=== PATIENT | female | born 1935 | race Caucasian/White ===

== ENCOUNTER 2020-06-06 08:00 | Outpatient (CLI) | payer MEDICARE, OTHER | END 2020-06-06 23:59 | disposition home or self-care (01) | LOC: LAB 08:00 | PROVIDERS: ATTEND Internal Medicine | DX: Z11.59 Encounter for screening for other viral diseases (principal); Z20.828 Contact with and (suspected) exposure to other viral communicable diseases ==

== ENCOUNTER 2022-02-19 12:51 | Outpatient (CLI) | payer MEDICARE, OTHER | END 2022-02-19 12:52 | disposition home or self-care (01) | LOC: LAB.R 12:51 | PROVIDERS: ATTEND Internal Medicine | DX: S91.002D Unspecified open wound, left ankle, subsequent encounter (principal) | CPT/HCPCS: 87070; 87077; 87181; 87205 ==

== ENCOUNTER 2022-05-12 03:57 | Outpatient (CLI) | payer MEDICARE | END 2022-05-12 03:58 | disposition critical access hospital (66) | LOC: EMS 03:57 | DX: I95.9 Hypotension, unspecified (principal) | CPT/HCPCS: A0425; A0427 ==

== ENCOUNTER 2022-05-12 04:34 | Observation (INO) | payer MEDICARE, OTHER ==
--- NOTE | 2022-05-12 05:13 | ED Physician Documentation ---
History of Present Illness - Stated complaint Stated Complaint: GLF - Chief complaint Chief Complaint: General - History obtained from History obtained from: Other (HPI from son (in ED at bedside). patient is too confused to reliably contribute to HPI/ROS) - History of Present Illness Timing: Enter time (03:00), Today - Additonal information Additional information: Patient is awake, alert, and pleasant but confused and thus cannot provide contribution to HPI/ROS. Patient's son is in ED at bedside, lives with patient. He says that at approximately 3 AM this morning he found patient on floor of her room, presumably haven fallen with a shelf and items that were on the shelf were next to her. Son says that patient is confused due to dementia. Patient denies any pain Review of Systems Unable to obtain: Confused PD PAST MEDICAL HISTORY - Past Medical History Past Medical History: Yes Cardiovascular: Deep vein thrombosis Neuro: Dementia - Past Surgical History Past Surgical History: Yes - Present Medications Home Medications: Ambulatory Orders Medication Instructions Recorded Confirmed Meloxicam 15 mg PO DAILY 03/17/14 05/12/22 Furosemide [Lasix] 20 mg PO DAILY 05/12/22 05/12/22 - Allergies Allergies/Adverse Reactions: Allergies Allergy/AdvReac Type Severity Reaction Status Date / Time diflunisal [From Dolobid] Allergy Hives Verified 05/12/22 04:40 etodolac [From Lodine] Allergy Hives Verified 05/12/22 04:40 iodine Allergy Anaphylaxis Verified 05/12/22 05:18 lidocaine Allergy Hives Verified 05/12/22 04:40 - Social History Does the pt smoke?: No Smoking Status: Never smoker Does the pt drink ETOH?: Yes Does the pt have substance abuse?: No - Immunizations Immunizations are current?: Yes PD ED PE NORMAL - Vitals Vital signs reviewed: Yes - General General: No acute distress, Well developed/nourished, Other (awake, alert, oriented x 1) - Cardiac Cardiac: RRR - Respiratory Respiratory: No respiratory distress, Clear bilaterally - Abdomen Abdomen: Soft, Non tender - Neuro Neuro: No motor deficit, No sensory deficit Eye Opening: Spontaneous Motor: Obeys Commands Verbal: Confused GCS Score: 14 PD ED PE EXPANDED - Cardiac Cardiac: Murmur Present (2/6 MARS bilateral second ICS) - Extremities Extremities: Other (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 mild edema. no edema RLE) Results - Vitals Vitals: Oxygen O2 Source Room air - Labs Labs: Microbiology 05/12/22 06:55 Urine Culture - Final Urine,Random No growth Laboratory Tests 05/12/22 05/12/22 05/12/22 05:48 05:48 05:48 WBC 10.9 H RBC 3.39 L Hgb 10.4 L Hct 30.4 L MCV 89.7 MCH 30.7 MCHC 34.2 RDW 12.8 Plt Count 159 MPV 9.9 Neut # (Auto) 9.5 H Lymph # (Auto) 0.7 L [place] # (Auto) 0.6 Eos # (Auto) 0.0 Baso # (Auto) 0.0 Absolute Nucleated RBC 0.00 Nucleated RBC % 0.0 Sodium 133 L Potassium 4.0 Chloride 98 L Carbon Dioxide 29 Anion Gap 6.0 BUN 25 H Creatinine 1.5 H Estimated GFR (MDRD) 33 L Glucose 98 Lactic Acid 1.5 Calcium 8.6 Magnesium Total Bilirubin 0.8 AST 22 ALT 18 Alkaline Phosphatase 39 L Troponin I High Sens B-Natriuretic Peptide Total Protein 4.6 L Albumin 3.0 L Globulin 1.6 L Albumin/Globulin Ratio 1.9 Lipase 47 Urine Color Urine Clarity Urine pH Ur Specific [place] Urine Protein Urine Glucose (UA) Urine Ketones Urine Occult Blood Urine Nitrite Urine Bilirubin Urine Urobilinogen Ur Leukocyte Esterase Urine RBC Urine WBC Urine WBC Clumps Ur Squamous Epith Cells Urine Bacteria Ur Microscopic Review Urine Culture Comments 05/12/22 05/12/22 05/12/22 06:55 08:48 08:48 WBC RBC Hgb 11.1 L Hct 32.6 L MCV MCH MCHC RDW Plt Count MPV Neut # (Auto) Lymph # (Auto) [place] # (Auto) Eos # (Auto) Baso # (Auto) Absolute Nucleated RBC Nucleated RBC % Sodium Potassium Chloride Carbon Dioxide Anion Gap BUN Creatinine Estimated GFR (MDRD) Glucose Lactic Acid Calcium Magnesium 2.3 Total Bilirubin AST ALT Alkaline Phosphatase Troponin I High Sens B-Natriuretic Peptide Total Protein Albumin Globulin Albumin/Globulin Ratio Lipase Urine Color YELLOW Urine Clarity CLEAR Urine pH 8.0 H Ur Specific [place] 1.010 Urine Protein NEGATIVE Urine Glucose (UA) NEGATIVE Urine Ketones NEGATIVE Urine Occult Blood SMALL H Urine Nitrite NEGATIVE Urine Bilirubin NEGATIVE Urine Urobilinogen 0.2 (NORMAL) Ur Leukocyte Esterase MODERATE H Urine RBC 0-5 Urine WBC >25 H Urine WBC Clumps PRESENT Ur Squamous Epith Cells FEW Squamous Urine Bacteria Few Ur Microscopic Review INDICATED Urine Culture Comments INDICATED 05/12/22 05/12/22 08:48 08:48 WBC RBC Hgb Hct MCV MCH MCHC RDW Plt Count MPV Neut # (Auto) Lymph # (Auto) [place] # (Auto) Eos # (Auto) Baso # (Auto) Absolute Nucleated RBC Nucleated RBC % Sodium Potassium Chloride Carbon Dioxide Anion Gap BUN Creatinine Estimated GFR (MDRD) Glucose Lactic Acid Calcium Magnesium Total Bilirubin AST ALT Alkaline Phosphatase Troponin I High Sens 521.6 H* B-Natriuretic Peptide 251 H Total Protein Albumin Globulin Albumin/Globulin Ratio Lipase Urine Color Urine Clarity Urine pH Ur Specific [place] Urine Protein Urine Glucose (UA) Urine Ketones Urine Occult Blood Urine Nitrite Urine Bilirubin Urine Urobilinogen Ur Leukocyte Esterase Urine RBC Urine WBC Urine WBC Clumps Ur Squamous Epith Cells Urine Bacteria Ur Microscopic Review Urine Culture Comments - Rads (name of study) CT head Radiology: Prelim report reviewed, See rad report CT cervical spine Radiology: Prelim report reviewed, See rad report chest xray Radiology: Prelim report reviewed, See rad report PD MEDICAL DECISION MAKING - ED course Complexity details: reviewed old records, reviewed results, re-evaluated patient, considered differential, d/w family ED course: presents after being found on floor of her room by her son, presumed that she fell although patient does not recall event. Son says her mental status in ED is not noticeably changed from previous. Blood pressures low-normal early in stay, trend down in mildly hypotensive range but responding to second liter NS IV. Care of patient turned over to oncoming ED physician pending test results. Departure - Departure Disposition: ED Place in Observation Clinical Impression: Syncope, Fall, Dementia, Elevated troponin, Bundle branch block, left Condition: Stable Discharge Date/Time: 05/12/22 12:05
[2022-05-12] MEDS ORDERED: SODIUM CHLORIDE 0.9% 1,000 ML IV STA (05:31)
[2022-05-12 05:54] LABS: BASOPHILS % (AUTO) 0.3 %; EOSINOPHILS % (AUTO) 0.1 %; HCT - HEMATOCRIT 30.4 % (37.0-47.0); HGB - HEMOGLOBIN 10.4 g/dL (12.0-16.0); LYMPHOCYTES # (AUTO) 0.7 10^3/uL (1.5-3.5); LYMPHOCYTES % (AUTO) 6.8 %; MEAN CORPUSCULAR HEMOGLOBIN 30.7 pg (27.0-31.0); MEAN CORPUSCULAR HGB CONC 34.2 g/dL (32.0-36.0); MEAN CORPUSCULAR VOLUME 89.7 fL (81.0-99.0); MEAN PLATELET VOLUME 9.9 fL (7.9-10.8); MONOCYTES # (AUTO) 0.6 10^3/uL (0.0-1.0); MONOCYTES % (AUTO) 5.3 %; NEUTROPHILS # (AUTO) 9.5 10^3/uL (1.5-6.6); PLT - PLATELET COUNT 159 10^3/uL (130-450); RED BLOOD COUNT 3.39 10^6/uL (4.20-5.40); RED CELL DISTRIBUTION WIDTH 12.8 % (12.0-15.0); WHITE BLOOD COUNT 10.9 x10^3/uL (4.8-10.8)
[2022-05-12 06:06] LABS: ALBUMIN/GLOBULIN RATIO 1.9 (1.0-2.2); BILIRUBIN,TOTAL 0.8 mg/dL (0.2-1.0); CALCIUM 8.6 mg/dL (8.5-10.3); CREATININE 1.5 mg/dL (0.4-1.0); TOTAL PROTEIN 4.6 g/dL (6.7-8.2)
[2022-05-12 07:00] LABS: BILIRUBIN,URINE NEGATIVE (NEGATIVE); CLARITY,URINE CLEAR (CLEAR); GLUCOSE, URINE (UA) NEGATIVE (NEGATIVE); KETONES,URINE (UA) NEGATIVE (NEGATIVE); LEUKOCYTE ESTERASE, URINE MODERATE (NEGATIVE); NITRITE,URINE NEGATIVE (NEGATIVE); OCCULT BLOOD,URINE SMALL (NEGATIVE); PROTEIN,URINE NEGATIVE (NEGATIVE); UROBILINOGEN,URINE 0.2 (NORMAL) E.U./dL (NORMAL)
[2022-05-12 07:22] LABS: BACTERIA,URINE Few /HPF (None Seen); SQUAMOUS EPITHELIAL CELL,UR FEW Squamous (<= Few); WBC CLUMPS,URINE PRESENT; WBC,URINE >25 /HPF (0-5)
[2022-05-12 07:35] LABS: RBC,URINE 0-5 /HPF (0-5)
--- NOTE | 2022-05-12 08:08 | XRAY Report ---
PROCEDURE: Chest 2 View X-Ray INDICATIONS: found on ground, AMS TECHNIQUE: 2 view(s) of the chest. COMPARISON: None. FINDINGS: Surgical changes and devices: Surgical clips are seen in left axilla. Lungs and pleura: No pleural effusions or pneumothorax. Low lung volume is seen with crowding of ves sels near bilateral hilar region. No focal infiltrate. Mediastinum: Mediastinal contours are normal. Heart size is enlarged. Bones and chest wall: No suspicious bony abnormalities. Soft tissues appear unremarkable. IMPRESSION: No acute cardiopulmonary pathology. No significant discrepancies from preliminary reading. Reviewed by: Km Lion MD on 05/12/2022 8:07 AM PDT Approved by: Km Lion MD on 05/12/2022 8:07 AM PDT Station ID: [id number]
--- NOTE | 2022-05-12 08:28 | CT Report ---
PROCEDURE: HEAD WO INDICATIONS: found on ground, possible fall, AMS TECHNIQUE: Noncontrast 4.5 mm thick angled axial sections acquired from the foramen magnum to the vertex. For r adiation dose reduction, the following was used: automated exposure control, adjustment of mA and/or kV according to patient size. COMPARISON: None. FINDINGS: Image quality: Excellent. CSF spaces: Basal cisterns are patent. No extra-axial fluid collections. Ventricles are normal in size and shape. Brain: Global cerebral volume loss and chronic ischemic changes. No midline shift. No intracranial m asses or hemorrhage. Bashir-white matter interface is normal. Skull and face: Calvarium and visualized facial bones are intact, without suspicious lesions. Sinuses: Visualized sinuses and mastoids are clear. IMPRESSION: No acute intracranial finding. No significant change from preliminary report. Reviewed by: Ghassan Pelayo MD on 05/12/2022 8:27 AM PDT Approved by: Ghassan Pelayo MD on 05/12/2022 8:27 AM PDT Station ID: [id number]
--- NOTE | 2022-05-12 08:29 | CT Report ---
PROCEDURE: CERVICAL SPINE WO INDICATIONS: found on ground, AMS TECHNIQUE: Noncontrast 3 mm thick sections acquired from the skull base to the T4 level. Sagittal and coronal r eformats were then constructed. For radiation dose reduction, the following was used: automated exp osure control, adjustment of mA and/or kV according to patient size. COMPARISON: None. FINDINGS: Image quality: Excellent. Bones: No fractures or dislocations. Visualized superior ribs are intact. Multilevel multifactoria l degenerative changes in the cervical spine, overall moderate. Soft tissues: Prevertebral soft tissues are normal in thickness. No paravertebral hematomas. No ap ical pneumothoraces. IMPRESSION: No CT evidence of acute traumatic cervical spine injury. No significant change from preliminary repor t. Reviewed by: Ghassan Pelayo MD on 05/12/2022 8:28 AM PDT Approved by: Ghassan Pelayo MD on 05/12/2022 8:28 AM PDT Station ID: [id number]
[2022-05-12 08:54] LABS: HCT - HEMATOCRIT 32.6 % (37.0-47.0); HGB - HEMOGLOBIN 11.1 g/dL (12.0-16.0)
[2022-05-12] MEDS ORDERED: cefTRIAXone 1 GM VIAL IVP STA (08:58)
[2022-05-12] MEDS ORDERED: ONDANSETRON 4 MG/2 ML VIAL IVP PRN (11:15)
[2022-05-12] MEDS ORDERED: oxyCODONE 5 MG TABLET PO PRN (11:15)
[2022-05-12] MEDS ORDERED: ENOXAPARIN 40 MG/0.4 ML SYRINGE SUBQ SCH (11:15)
[2022-05-12] MEDS ORDERED: ACETAMINOPHEN 325 MG TABLET PO PRN (11:15)
[2022-05-12] MEDS ORDERED: ONDANSETRON ODT 4 MG TABLET TL PRN (11:15)
--- NOTE | 2022-05-12 11:31 | HISTORY & PHYSICAL EXAMINATION ---
Chief Complaint - Chief Complaint Chief Complaint: found down by son History of Present Illness - Admitted From Admitted From:: home - History Obtained From Records Reviewed: [facility] History obtained from: Dr. Santos, son and Dr. Wong Exam Limitations: dementia - History of Present Illness HPI Comment/Other: She has dementia and lives with her son. No change in status and she has been gently failing for the last few years. This morning he heard her fumbling in her bathroom and when he went to investigate, she had fallen. She states she was wiping up water off the floor and there no LOC. She just "lost my balance bending over." She was brought in by ambulance after her son found her down after hearing her fall. She does not remember if she hit her head, and she denies any lacerations or pain in her neck. She does not remember having any chest pain, palpitations or shortness of breath. There is no previous history of syncope. When EMS arrived at the scene there was no injuries identified on their assessment. She was brought to emergency room where temperature was 36.4. Heart rate 77. Blood pressure 90/53. Respirations 16. 98% on room air. She was an elderly female, very forgetful. In no acute distress. Telemetry had sinus rhythm. EKG had a left bundle branch block. Creatinine is 1.5 and there is no baseline to compare to. She appears to have poor protein status with an albumin of 3, protein of 4.6. Initial troponin is 251. The troponin was done because of low blood pressure. She is denying chest pain. Hemoglobin was 10.4, hematocrit 10.9. Urinalysis had moderate leukocyte Estrace, greater than 25 white cells, squamous epithelial cells were present. INR is 2.3 in a patient who only takes meloxicam on her home med list. Son states that their focus is comfort measures. He has the paperwork at home and has to go home to bring it in. As such the patient is being presented as observation status patient for ruling out LA and to make sure there is no arrhythmias or congestive heart failure that occurs from a possible NSTEMI. I was able to speak to her primary care provider, Baylee wong MD. She is with [facility] at [phone]. The patient was last seen via telemedicine in the last few weeks. She is a DO NOT RESUSCITATE and interventions such as angiograms and procedures are not wished for by this patient. However they do wish to move forward philosophically for treatment of such things as electrolyte abnormalities, infection, and treatment for problems as such. She asked us to please keep her updated. Her fax number is [phone]. Her most recent history is a complicated left ankle ulcer. In late January 2022, she had a spot on her left medial ankle that was biopsied by dermatology. The wound did not heal and she ended up going to the emergency room at the [facility] on February 09 and was admitted to the hospital. She was in the hospital for cellulitis February 09 through February 11. She returned to the PCP office February 16, 2022 via telemed when she was discharged. She was diagnosed with continued cellulitis of the ankle. Treated. But then she failed outpatient management was admitted to [facility] February 22 through March 01 for left ankle cellulitis and infectious myositis. Cultures grew out Pseudomonas, Serratia, and E. coli. She was discharged from [facility] and went to [facility] and was receiving IV antibiotics in the form of cefepime. She was in [facility] from March 01 through April 30. On Tuesday, March 26 she developed swelling of the tongue and mouth and rash of her arms and legs and cefepime was discontinued. The intimation while reading the PCP note is that she did not receive any therapy from March 26 through March 29 when she was seen in followup March 29. [facility] was awaiting instruction from ID about what to do after the drug reaction. In the office her PCP felt that she still has significant leg wound infection. But overall, the patient completed cefepime IV twice daily for 2 to 4-week course. On probiotics. Because her AST and ALT were elevated on labs in the week prior to May 06, sh e was changed to oral Levaquin and metronidazole and continued on probiotics. By then she had lost 20 pounds in 1 month. Seen by the PCP via Telemed May 06. She was not felt to have osteomyelitis or abscess and as such Ortho did not do any debridement. Hypovolemic hyponatremia that had developed in the hospital had improved. Methotrexate has been held since February in the setting of a nonhealing infection. She was being followed by home health ocular care aide as well as OT, bath aide, and speech therapy. The wound was starting to clear up. No fevers. Blood pressure was occasionally low. Starting to get constipated and oxycodone. And as such stopped taking oxycodone. Patient son noted that while in the senior care Occupational Therapy tested her and found her to be in the dementia range. The son was starting to look at a higher level of care.With that visit, mirtazapine was discussed as a possibility to stimulate her appetite and help her weight as well as depression. The patient and the son declined that. Because her blood pressure had been low Lasix was reduced to 10 mg a day. And it was recommended the son start checking her blood pressure daily. History - Past Medical History Cardiovascular: reports: Deep vein thrombosis Respiratory: reports: None Neuro: reports: Dementia Endocrine/Autoimmune: reports: None GI: reports: None POWER TRANSMISSION ENGINEER: reports: Breast cancer, Other () : reports: None Musculoskeletal: reports: Rheumatoid arthritis, Other (foot fracture in past,) Derm: reports: Other (nonhealing wound L ankle) MRSA Hx?: No - Past Surgical History /POWER TRANSMISSION ENGINEER: reports: Other (lumpectomy) - Family & Social History Family History Comment/Other: Mother at around 72 of an unknown type of cancer. She did not know her father very well and does not know his history. 1 sister of uterine cancer in her 60s, 1 brother in a motorcycle accident. 2 sons are healthy as far she knows Living arrangement: At home Living Situation: With family Social History Notes: Born and raised in [place]. , and she became a about 6 years ago. She worked as a medical secretary receptionist for about 30 years. Never smoked. Rarely drank. Moved to the [place] 28 years ago when she retired. Her son moved in with she and her a few years ago to help take care of them.Her other son is autistic and lives in a detention in [place] - Substance History Use: Uses substance without health or social issues: NONE Abuse: Recurrent use of substance despite neg consequences: NONE Dependence: Experiences withdrawal or developed tolerances: NONE - POLST Patient has POLST: Yes POLST Status: DNR (With a focus on simple treatment, not big procedures) Meds/Allgy - Home Medications Home Medications: Ambulatory Orders Medication Instructions Recorded Confirmed Meloxicam 15 mg PO DAILY 03/17/14 05/12/22 Furosemide [Lasix] 20 mg PO DAILY 05/12/22 05/12/22 - Allergies Allergies/Adverse Reactions: Allergies Allergy/AdvReac Type Severity Reaction Status Date / Time diflunisal [From Dolobid] Allergy Hives Verified 05/12/22 04:40 etodolac [From Lodine] Allergy Hives Verified 05/12/22 04:40 iodine Allergy Anaphylaxis Verified 05/12/22 05:18 lidocaine Allergy Hives Verified 05/12/22 04:40 Review of Systems - Constitutional Constitutional: reports: Fatigue, Malaise, Weakness, Poor appetite, Weight loss, Other (She is trying to gain back some of the weight she lost. She says it is just hard work with anorexia) - Eyes Eyes: reports: Vision loss, Corrective lenses. denies: Pain, Irritation, Amaurosis, Blurred vision - Ears, Nose & Throat Ears, Nose & Throat: reports: Hearing loss (You need to really step close to her and speak loudly for her to hear you). denies: Nasal obstruction, Nasal congestion, Postnasal drainage, Sore throat, Hoarseness - Cardiovascular Cariovascular: reports: Exertional dyspnea, Decr. exercise tolerance. denies: Irregular heart rate, Palpitations, Chest pain, Edema, Syncope, Orthopnea - Respiratory Respiratory: denies: Cough, Sputum production, Wheezing, Snoring, SOB at rest, SOB with exertion - Gastrointestinal Gastrointestinal: reports: Diarrhea (With antibiotics when she was at the senior care. She took opiates for pain and then that caused constipation. She has had about 3 bowel movements since she has been home from the senior care.), Bloating, Poor appetite. denies: Abdominal pain, Abdominal distention, Black stools, Bloody stools, Vomiting, Bile emesis, Reflux/heartburn - Genitourinary Genitourinary: reports: Incontinence. denies: Dysuria, Frequency, Urgency, Hem aturia - Musculoskeletal Musculoskeletal: reports: Back pain (From being in bed all the time), Muscle aches, Stiffness, Muscle weakness (Generalized, requiring a walker), Joint pain (From rheumatoid arthritis). denies: Muscle pain, Joint swelling, Other - Integumentary Integumentary: reports: Rash (When she was in the senior care. Cefepime may been changed to meropenem. Not clear.), Pruritis, Dryness (Of her skin overall. Particularly over her legs where they are flaking.) - Neurological Neurological: reports: General weakness, Dizziness, Memory problems. denies: Focal weakness, Headache - Psychiatric Psychiatric: denies: Depression, Anxiety, Suicidal - Endocrine Endocrine: reports: Intolerance to cold. denies: Polyuria, Polydypsia, Polyphagia - Hematologic/Lymphatic Hematologic/Lymphatic: reports: Anemia, Bruising. denies: Petechiae, Blood clots, Lymphadenopathy, Bleeding tendencies Prior Level of Functionality: She is able to feed herself. But she needs a lot of help getting dressed. Someone has to help her bathe. She is able to walk a few steps with a walker. Right now home health is at her house to help her with bath aide, OT, PT, and wound care. Exam - Vital Signs Reviewed Vital Signs: Yes Vital Signs: Vital Signs x48h Temp Pulse Resp BP Pulse Ox 05/12/22 10:00 76 22 102/67 100 05/12/22 08:00 75 17 102/58 L 100 05/12/22 06:43 79 22 92/68 99 05/12/22 06:04 77 18 95/57 L 100 05/12/22 05:02 72 12 85/51 L 98 05/12/22 04:40 36.4 C L 77 16 90/53 L 98 - Physical Exam General Appearance: positive: No acute distress (Dismayed at being here. She thinks her son overreacted and she feels perfectly normal now and wants to go home), Alert, Other (Oriented, lucid elderly female that is cachectic, appears quite frail, with moderate deafness) Eyes Bilateral: positive: PERRL, EOMI, Other (Wearing glasses) ENT: positive: Dry mucous membranes Neck: positive: No JVD, Trachea midline. negative: Stiff neck Respiratory: positive: No respiratory distress. negative: Wheezes, Rales, Rhonchi Cardiovascular: positive: Regular rate & rhythm, Systolic murmur. negative: Gallop/S4, Friction rub Abdomen: positive: Non-tender, No organomegaly, Nml bowel sounds, No distention Skin: positive: Warm, Dry, Other (Skin appears fragile, thin especially over her legs. Dry flakiness on both legs. The left leg is wrapped in Uche wrap starting around the foot, wrapping around her ankle and going up the calf. The right leg has extensive dark, dark ecchymoses that are resolving along the right lateral distal extre) Extremities: positive: Full ROM, No pedal edema, Other (Extensive cachexia and loss of muscle mass) Neurologic/Psychiatric: positive: Oriented x3, Motor nml (but generalized weakness), Mood/affect nml (fretful, foesn't want to be here and wants to go home.). negative: CN's nml (2-12) (deaf and wearing glasses), Slurred/abnml speech Conclusion/Plan - Problem List (1) Syncope and collapse Conclusion/Plan: This is a suspicion on our part. She does not really recall the fall. She just knows that she was bending over to wipe water off the bathroom floor in the next and she knows she is on the floor. She denies any antecedent aura or symptomatology. There is no nausea, diaphoresis, lightheadedness. She denies current chest pain, palpitations, jaw pain, left arm pain. She feels "perfectly normal". Plan: Observation status Telemetry overnight especially in view of elevated troponins Possible echocardiogram in the morning (2) Elevated troponin Conclusion/Plan: She has no previous cardiac history. Unfortunately EKG has a bundle branch block and is uninterpretable for ischemia. She denies any symptomatology with this and she may or may not of had syncope. Initial troponin is 521. Will follow and trend. In speaking to the primary care provider, she confirms that the patient would not want aggressive intervention in the form of angiograms, etc. I will sit down with the son to verify once he returns with all the paperwork. She would receive a statin, aspirin, Lovenox (3) Dementia Conclusion/Plan: She has been failing for a few years according to the medical record. Evaluated by occupational therapy while she was in the hospital in February with a diagnosis of moderate dementia. Son is her DPOA. Qualifiers: Dementia type: Alzheimer's (4) Elevated INR Conclusion/Plan: On May 06 her medication list from her PCP office had her on Tylenol, Zyrtec, Benadryl, senna, Estrace vaginal cream, folic acid, Lasix, probiotic, Levaquin, magnesium, melatonin, meropenem, Flagyl, multivitamin, Ocuvite, Zofran, oxyc odone as needed, and MiraLAX She used to be on methotrexate. She has not been on it since February. I am not quite clear on the mechanism of why her INR is elevated. We will recheck again tomorrow. We will also see if they can get old records from the hospital to see if INR was elevated then. (5) Ulcer of left ankle Conclusion/Plan: Nursing identifies a full-thickness skin tear to the medial aspect of the left lower extremity just above the malleolus. It is 7 cm x 2.5 cm. There is old Xeroform dressing gauze to a beefy red wound bed wrapped with Kerlix and held in place with an Uche wrap. The Uche wrap was removed and replaced after visualization of the wound. There is no surrounding redness, heat, drainage. Qualifiers: Non-pressure ulcer stage: unspecified non-pressure ulcer stage Qualified Code(s): L97.329 - Non-pressure chronic ulcer of left ankle with unspecified severity (6) Protein-calorie malnutrition, severe Conclusion/Plan: She has significant muscle wasting and loss of subcutaneous fast. She is exceedingly thin over the temporal areas and clavicular areas. She is lost 16% of her body weight in the last month. She is bed ridden and was significantly reduced functional capacity. Nutrition services will see the patient and see if they can help with increased protein calorie - Lab Results Lab results reviewed: Yes Fish Bones: 05/12/22 08:48 05/12/22 05:48 - Diagnostic Imaging Results Diagnostic Imaging Results: positive: Final report reviewed Diagnostic Imaging Results Comments: 1. Chest x-ray is without acute cardiopulmonary pathology. 2. Head CT is without acute intracranial finding. 3. Cervical spine CT is without evidence of acute traumatic cervical spine injury. - EKG Results EKG Interpreted Independently: No EKG Comparison: No prior EKG EKG Findings: Normal sinus rhythm with a left bundle branch block Core Measures - Anticipated LOS I expect patient to be DC'd or transferred within 96 hours.: Yes - DVT/VTE - Prophylaxis VTE/DVT Prophylaxis med ordered at admit?: Yes
[2022-05-12 12:46] LABS: B. PARAPERTUSSIS- RESP PCR PAN NOT DETECTED; B. PERTUSSIS- RESP PCR PANEL NOT DETECTED; C. PNEUMONIAE- RESP PCR PANEL NOT DETECTED; CORONAVIRUS 229E-RESP PCR NOT DETECTED; CORONAVIRUS HKU1-RESP PCR NOT DETECTED; CORONAVIRUS NL63-RESP PCR NOT DETECTED; CORONAVIRUS OC43-RESP PCR NOT DETECTED; HUMAN METAPNEUMOVIRUS NOT DETECTED; INFLUENZA A- RESP PCR PANEL NOT DETECTED; INFLUENZA B - RESP PCR PANEL NOT DETECTED; M. PNEUMONIAE- RESP PCR PANEL NOT DETECTED; PARAINFLUENZA VIRUS 1 NOT DETECTED; PARAINFLUENZA VIRUS 2 NOT DETECTED; PARAINFLUENZA VIRUS 3 NOT DETECTED; PARAINFLUENZA VIRUS 4 NOT DETECTED; RHINOVIRUS/ENTEROVIRUS NOT DETECTED; RSV- RESP PCR PANEL NOT DETECTED; SARS-CoV-2 -RESP PCR PANEL NOT DETECTED
[2022-05-12] MEDS: SODIUM CHLORIDE 0.9% 1,000 ML IV SCH ×2 (12:46→22:27)
--- NOTE | 2022-05-12 14:19 | ED Physician Documentation ---
ED Addendum - Addendum Addendum: 05/12/22 14:16The patient had presented during the night for apparent syncope versus fall with hitting her head on the closet shelves and being crumpled on the floor with the neck slightly bent. She did have CTs of the head and neck which were normal. She denies any headache or neck pain at this time. The patient was seen to be in a left bundle branch block and this was unknown previously to her or her son. Given the syncopal episode, I added on a troponin to assess and this was elevated at 500s. The patient does have a mild heart murmur as well. The bundle branch block may be chronic but no previous EKGs available. Consideration would be a new MRI given the elevated troponin. The patient is comfort measures/DNR and I talked with her and her son and they did not want any aggressive interventions such as heart cath or other evaluations. We did talk that evaluation of her heart with an ultrasound to look at the current status and be able to affect any medication interventions to help on comfort in the in the care of her would be appropriate. They are agreeable on this. I talked with Dr. Marquez who is on for hospitalist service and she is agreeable to having the patient in the hospital for further evaluation of her apparent non-STEMI WI. Understanding in this context as the patient is a DNR/comfort measures and the patient did not want aggressive intervention. Diagnoses: 1. Syncope versus fall 2. Left bundle branch block on EKG 3. Elevated troponin level with non-STEMI WI 4. History of dementia
[2022-05-12] MEDS: ENOXAPARIN 60 MG/0.6 ML SYRINGE SUBQ SCH (14:39)
[2022-05-12] MEDS: SODIUM CHLORIDE FLUSH 0.9% 10 ML SYRINGE IVP SCH ×2 (17:03)
[2022-05-12] MEDS: ASPIRIN 325 MG TABLET PO SCH (21:08)
[2022-05-12] MEDS: ATORVASTATIN 40 MG TABLET PO SCH (21:08)
[2022-05-13] MEDS: SODIUM CHLORIDE FLUSH 0.9% 10 ML SYRINGE IVP SCH ×4 (01:03→16:38)
[2022-05-13 05:07] LABS: CALCIUM 7.7 mg/dL (8.5-10.3); CREATININE 1.1 mg/dL (0.4-1.0); POTASSIUM 3.2 mmol/L (3.5-5.0)
[2022-05-13] MEDS: ENOXAPARIN 60 MG/0.6 ML SYRINGE SUBQ SCH ×2 (08:31→08:35)
[2022-05-13] MEDS: CHOLECALCIFEROL 25 MCG TABLET PO SCH (08:34)
[2022-05-13] MEDS: ASPIRIN 325 MG TABLET PO SCH (08:34)
[2022-05-13] MEDS: polyethylene glycoL 3350 17 GM PACKET PO SCH (08:38)
--- NOTE | 2022-05-13 12:41 | PROVIDER PROGRESS NOTE ---
Subjective - Prog Note Date Prog Note Date: 05/13/22 Prog Note Time: 12:58 - Subjective Subjective: She does not know why she is here. Denies any significant pain. No shortness of breath. No chest pain. Current Medications - Current Medications Current Medications: Active Medications Acetaminophen (Acetaminophen 325 Mg Tablet) 650 mg PO Q4HR PRN PRN Reason: Pain 1 to 4, or Fever Aspirin (Aspirin 325 Mg Tablet) 325 mg PO DAILYWM [facility] Last Admin: 05/13/22 08:34 Dose: 325 mg Atorvastatin Calcium (Atorvastatin 40 Mg Tablet) 80 mg PO QPM [facility] Last Admin: 05/12/22 21:08 Dose: 80 mg Cholecalciferol (Cholecalciferol 25 Mcg Tablet) 50 mcg PO DAILY [facility] Last Admin: 05/13/22 08:34 Dose: 50 mcg Enoxaparin Sodium (Enoxaparin 60 Mg/0.6 Ml Syringe) 50 mg SUBQ DAILY [facility] Last Admin: 05/13/22 08:35 Dose: 50 mg Multivitamins/Minerals (Multivitamin W/Minerals Tablet) 1 tab PO DAILYWM [facility] Ondansetron HCl (Ondansetron Odt 4 Mg Tablet) 4 mg TL Q6HR PRN PRN Reason: Nausea / Vomiting Ondansetron HCl (Ondansetron 4 Mg/2 Ml Vial) 4 mg IVP Q6HR PRN PRN Reason: Nausea / Vomiting Oxycodone HCl (Oxycodone 5 Mg Tablet) 5 mg PO Q4HR PRN PRN Reason: Pain 5 to 7 Polyethylene Glycol (Polyethylene Glycol 3350 17 Gm Packet) 17 gm PO DAILY [facility] Last Admin: 05/13/22 08:38 Dose: 17 gm Sodium Chloride (Sodium Chloride Flush 0.9% 10 Ml Syringe) 10 ml IVP 0100,0900,1700 [facility] Last Admin: 05/13/22 01:03 Dose: Not Given Meloxicam 15 mg PO DAILY 03/17/14 Furosemide [Lasix] 20 mg PO DAILY 05/12/22 Objective - Vital Signs/Intake & Output Reviewed Vital Signs: Yes Vital Signs: Vital Signs x48h Temp Pulse Resp BP Pulse Ox 05/13/22 07:31 36.6 C 70 14 113/71 94 05/13/22 04:56 36.3 C L 63 16 112/53 L 95 Intake & Output: Intake & Output 05/10/22 05/11/22 05/12/22 05/13/22 23:59 23:59 23:59 23:59 Intake Total 2308.333 1320.000 Output Total 250 200 Balance 2058.333 1120.000 - Objective General Appearance: positive: No acute distress, Alert, Other (Elderly cachectic female with bilateral temporal wasting, frail appearance, low soft voice) Eyes Bilateral: positive: PERRL, EOMI ENT: positive: No signs of dehydration Neck: positive: No JVD. negative: Stiff neck Respiratory: positive: No respiratory distress. negative: Wheezes, Rales, Rhonchi Cardiovascular: positive: Regular rate & rhythm, Systolic murmur. negative: Gallop/S4, Friction rub Abdomen: positive: Non-tender, No organomegaly, Nml bowel sounds, No distention Skin: positive: Warm, Dry Extremities: positive: Full ROM, No pedal edema Neurologic/Psychiatric: positive: CN's nml (2-12), Motor nml, Disoriented to place, Disoriented to time - Lab Results Fish Bones: 05/12/22 08:48 05/13/22 04:50 Other Labs: Lab Results x24hrs 05/13/22 05/12/22 05/12/22 Range/Units 04:50 22:45 15:13 Sodium 138 (135-145) mmol/L Potassium 3.2 L (3.5-5.0) mmol/L Chloride 106 (101-111) mmol/L Carbon Dioxide 24 (21-32) mmol/L Anion Gap 8.0 (6-13) BUN 14 (6-20) mg/dL Creatinine 1.1 H (0.4-1.0) mg/dL Estimated GFR (MDRD) 47 L (>89) Glucose 73 (70-100) mg/dL Calcium 7.7 L (8.5-10.3) mg/dL Troponin I High Sens 462.3 H* 734.5 H* (2.3-14.8) ng/L Nasal Adenovirus (PCR) Nasal B. parapertussis DNA (PCR) Nasal Coronavir 229E PCR Nasal Coronavir HKU1 PCR Nasal Coronavir NL63 PCR Nasal Coronavir OC43 PCR Nasal Enterovir/Rhinovir PCR Nasal Influenza B PCR Nasal Influenza A PCR Nasal Parainfluen 1 PCR Nasal Parainfluen 2 PCR Nasal Parainfluen 3 PCR Nasal Parainfluen 4 PCR Nasal RSV (PCR) Nasal B.pertussis DNA PCR Nasal C.pneumoniae (PCR) Hector Human Metapneumo PCR Nasal M.pneumoniae (PCR) Nasal SARS-CoV-2 (PCR) 05/12/22 Range/Units 11:16 Sodium (135-145) mmol/L Potassium (3.5-5.0) mmol/L Chloride (101-111) mmol/L Carbon Dioxide (21-32) mmol/L Anion Gap (6-13) BUN (6-20) mg/dL Creatinine (0.4-1.0) mg/dL Estimated GFR (MDRD) (>89) Glucose (70-100) mg/dL Calcium (8.5-10.3) mg/dL Troponin I High Sens (2.3-14.8) ng/L Nasal Adenovirus (PCR) NOT DETECTED Nasal B. parapertussis DNA (PCR) NOT DETECTED Nasal Coronavir 229E PCR NOT DETECTED Nasal Coronavir HKU1 PCR NOT DETECTED Nasal Coronavir NL63 PCR NOT DETECTED Nasal Coronavir OC43 PCR NOT DETECTED Nasal Enterovir/Rhinovir PCR NOT DETECTED Nasal Influenza B PCR NOT DETECTED Nasal Influenza A PCR NOT DETECTED Nasal Parainfluen 1 PCR NOT DETECTED Nasal Parainfluen 2 PCR NOT DETECTED Nasal Parainfluen 3 PCR NOT DETECTED Nasal Parainfluen 4 PCR NOT DETECTED Nasal RSV (PCR) NOT DETECTED Nasal B.pertussis DNA PCR NOT DETECTED Nasal C.pneumoniae (PCR) NOT DETECTED Hector Human Metapneumo PCR NOT DETECTED Nasal M.pneumoniae (PCR) NOT DETECTED Nasal SARS-CoV-2 (PCR) NOT DETECTED ABX Reporting Has patient been on IV antibiotics over the past 48 hours?: No Assessment/Plan - Problem List (1) NSTEMI (non-ST elevated myocardial infarction) Impression: She was admitted for a suspicion of syncope and the elevated troponin. She does not really recall the fall. She just knows that she was bending over to wipe water off the bathroom floor in the next and she knows she is on the floor. She denies any antecedent aura or symptomatology. There is no nausea, diaphoresis, lightheadedness. She denies current chest pain, palpitations, jaw pain, left arm pain. She feels "perfectly normal". Since here no syncope, no new symptoms. Initial troponin was 521. Then she went to 754, 734, and finally started trending down last night to 462. She has had no arrhythmias, congestive heart failure. ST segments did change on telemetry, but those are not able to be interpreted. Repeat EKG is without change. Still with a left bundle branch block.Telemetry overnight is without arrhythmia. Echocardiogram today shows ejection fraction of 50 to 55%. Grade 1 diastolic dysfunction. No regional wall motion abnormalities. Paradoxical septal motion consistent with left bundle branch block. Mild left atrial volume index increased. Plan: Observation status To continue. Continue Lovenox 40 SQ twice daily, continue aspirin and statin. Probable discharge tomorrow on new statin and aspirin. Case was discussed with the son.He reiterates that he is not interested in sending her for cardiology evaluation with a stress test or a coronary angiogr am. (2) Dementia Conclusion/Plan: She has been failing for a few years according to the medical record. Evaluated by occupational therapy while she was in the hospital in February with a diagnosis of moderate dementia. Son is her DPOA. Today he tells me that he really wants to plan for the future. She does not have money to be placed in a permanent long-term care facility on her finances. At this time she does not meet criteria for Medicare bed under the SNF benefit for Medicare. He is going to be meeting with social work and discharge planning about starting the process of Medicaid. His plan is to get a [facility] bed and put her in [facility]. Discharge planning will help him start with the paperwork. Qualifiers: Dementia type: Alzheimer's (3) Elevated INR Conclusion/Plan: On May 06 her medication list from her PCP office had her on Tylenol, Zyrtec, Benadryl, senna, Estrace vaginal cream, folic acid, Lasix, probiotic, Levaquin, magnesium, melatonin, meropenem, Flagyl, multivitamin, Ocuvite, Zofran, oxycodone as needed, and MiraLAX She used to be on methotrexate. She has not been on it since February. I am not quite clear on the mechanism of why her INR is elevated unless it's liver affect from the MTX. We will recheck again today. Order is pending. We will also see if they can get old records from the hospital to see if INR was elevated then. (4) Ulcer of left ankle Conclusion/Plan: Nursing identifies a full-thickness skin tear to the medial aspect of the left lower extremity just above the malleolus. It is 7 cm x 2.5 cm. There is old Xeroform dressing gauze to a beefy red wound bed wrapped with Kerlix and held in place with an Uche wrap. The Uche wrap was removed and replaced after visualization of the wound. There is no surrounding redness, heat, drainage. Qualifiers: Non-pressure ulcer stage: unspecified non-pressure ulcer stage Qualified Code(s): L97.329 - Non-pressure chronic ulcer of left ankle with unspecified severity (5) Protein-calorie malnutrition, severe Conclusion/Plan: She has significant muscle wasting and loss of subcutaneous fast. She is exceedingly thin over the temporal areas and clavicular areas. She is lost 16% of her body weight in the last month. She is bed ridden and was significantly reduced functional capacity. Nutrition services will see the patient and see if they can help with increased protein calorie
[2022-05-13 13:10] LABS: BASOPHILS % (AUTO) 0.6 %; EOSINOPHILS # (AUTO) 0.1 10^3/uL (0.0-0.7); EOSINOPHILS % (AUTO) 1.5 %; HCT - HEMATOCRIT 33.8 % (37.0-47.0); HGB - HEMOGLOBIN 11.7 g/dL (12.0-16.0); LYMPHOCYTES # (AUTO) 1.1 10^3/uL (1.5-3.5); LYMPHOCYTES % (AUTO) 15.7 %; MEAN CORPUSCULAR HEMOGLOBIN 31.4 pg (27.0-31.0); MEAN CORPUSCULAR HGB CONC 34.6 g/dL (32.0-36.0); MEAN CORPUSCULAR VOLUME 90.6 fL (81.0-99.0); MEAN PLATELET VOLUME 9.8 fL (7.9-10.8); MONOCYTES # (AUTO) 0.4 10^3/uL (0.0-1.0); MONOCYTES % (AUTO) 5.2 %; NEUTROPHILS # (AUTO) 5.1 10^3/uL (1.5-6.6); NEUTROPHILS % (AUTO) 76.7 %; PLT - PLATELET COUNT 188 10^3/uL (130-450); RED BLOOD COUNT 3.73 10^6/uL (4.20-5.40); RED CELL DISTRIBUTION WIDTH 13.2 % (12.0-15.0); WHITE BLOOD COUNT 6.7 x10^3/uL (4.8-10.8)
[2022-05-13 13:15] LABS: PT - PROTHROMBIN TIME 11.3 secs (9.9-12.6)
[2022-05-13 13:25] LABS: POTASSIUM 3.8 mmol/L (3.5-5.0)
[2022-05-13] MEDS: MULTIVITAMIN W/MINERALS TABLET PO SCH (16:18)
[2022-05-13] MEDS ORDERED: ZINC OXIDE 20% OINT 30 GM TUBE TOP PRN (20:32)
[2022-05-13] MEDS: ATORVASTATIN 40 MG TABLET PO SCH (21:38)
[2022-05-14] MEDS: SODIUM CHLORIDE FLUSH 0.9% 10 ML SYRINGE IVP SCH ×2 (00:26→08:02)
[2022-05-14 07:26] VITALS: BP 138/69
[2022-05-14] MEDS: polyethylene glycoL 3350 17 GM PACKET PO SCH (08:02)
[2022-05-14] MEDS: CHOLECALCIFEROL 25 MCG TABLET PO SCH (08:02)
[2022-05-14] MEDS: ASPIRIN 325 MG TABLET PO SCH (08:02)
[2022-05-14] MEDS: MULTIVITAMIN W/MINERALS TABLET PO SCH (08:02)
--- NOTE | 2022-05-14 11:20 | Discharge Plan ---
Discharge Plan Problem Reviewed?: Yes Disposition: Home Health Service Condition: Stable Prescriptions: Aspirin EC [Ecotrin] 81 mg PO DAILY #30 tablet Atorvastatin [Lipitor] 20 mg PO DAILY #30 tablet Diet: Cardiac Activity Restrictions: Activity as Tolerated Shower Restrictions: No Driving Restrictions: Yes (no driving) Health Concerns: You came to our emergency room because you had fallen in the bathroom. Your son heard you fall and found you down. You think that you fell because you were reaching for water on the floor and trying to wipe it up. You do not remember if you passed out or not. You have had a very difficult few months. A simple skin biopsy of your left ankle resulted in severe complications of infection of the skin and muscle and you have been in the hospital several times and a [facility] for rehab. You have also received IV antibiotics for quite some time. You still have a wound on your left leg that is slowly healing. And a home health agency is seeing you on a regular basis. You have been able to recently come home, and starting to get some of your strength and appetite back. In the context of all of all of this is when you fell. We found you to be with a low blood pressure, very forgetful. Your EKG has something called a left bundle branch block which leaves us unable to interpret if your EKG is having any new severe changes. But your blood test for heart attack were elevated. Our blood test goes to 14 to check for muscle damage in the heart. When you were in the emergency room your blood test was 521. We kept you for a couple of days to give you an aspirin, up cholesterol pill, and a blood thinner to monitor you during the small heart attack. You have done well and have had no complications of congestive heart failure or a new irregular heartbeat with this. In addition, you and your son have both firmly stated that your focus is more on comfort. You are not interested in procedures such as coronary angiograms or major surgeries. Plan of Treatment: 1. We would like you to take a cholesterol pill and an aspirin for at least 6 months. Please talk to your primary care provider and they may ask you to take it for up to 12 months. We did check an ultrasound of your heart to make sure that the heart attack and not affected you. And you have a great heart. The pump function shows your heart to be compressing and relaxing normally. We called an ejection fraction and it is 50 to 55%. There is no abnormality in the wall motion of your heart muscle. 2. We will resume your home health treatment. You see a home health person for a bath aide, physical therapy, and wound care. Care Goals: To remain at home for as long as possible and till you can no longer be independent. Assessment: Your son is your advocate. All of this was discussed with your son/power of collections attorney Gonzalez. He tells me he will be following through with your care plan and treatment plan. No Smoking: If you smoke, Please STOP! Call for help. Follow-up with: Baylee Wong MD [Primary Care Provider] -
--- NOTE | 2022-05-14 12:24 | DISCHARGE SUMMARY ---
"Discharge Summary Admit Date: 05/12/22 Discharge Date: 05/14/22 Discharging Provider: Marilynn Marquez MD Primary Care Provider: Baylee Wong MD Code Status: Do Not Attempt Resuscitation Condition at Discharge: Stable Discharge Disposition: Home Health Service - DIAGNOSES Discharge Diagnoses with Status of Each Condition: 1. NSTEMI 2. Dementia without behavioral disturbance 3. Ulcer left ankle, chronic 4. Severe protein calorie malnutrition 5. Fall at home - HPI History of Present Illness: 86-year-old female who has suffered complications of an ankle biopsy from January of this year. She ended up having cellulitis, progressive infection of the skin, myositis with multiple hospitalizations and a prolonged [facility] facility stay requiring IV antibiotics. She has dementia, lives with her son. She been home for a couple of weeks. She fell in the bathroom and he went to investigate and he found her down. She does not remember why she fell but she thinks she was wiping up water from the bathroom floor. In the emergency room she has a left bundle branch block, elevated troponins. However review of systems is completely negative for [place] at this time. Son states that their focus is comfort measures. I was able to speak to her primary care provider. Her primary care provider stated that the conversation needed to be held with the son and the family as to what exactly comfort measures were. She herself had not had that conversation with the family other than she knew that she was still moving forward treatment and interventions, Not clearly stated was how aggressive the interventions were to be.[facility] primary care provider was able to provide us with medical records from the last visit. Which was a telemed visit. Son stated that he did not want mom transferred for NSTEMI. He did not want cardiology evaluation with coronary angiograms, stress test, etc. - CONSULTS | PROCEDURES Procedures: Echocardiogram had mild concentric left ventricular hypertrophy with normal wall thickening. Ejection fraction 55%. Mild diastolic dysfunction left atrium was mildly dilated. Normal right ventricular size and function. Normal pulmonary pressures. Sclerotic aortic valve that was mild, central regurgitation and no stenosis. Mild mitral regurgitation. High-sensitivity troponins were 521, 754, 734, and 462 and trending downwards. Are high-sensitivity troponins go as high as 14.8 before being positive. - HOSPITAL COURSE Hospital Course: The patient was treated as an NSTEMI with Lovenox subcutaneously, statin, and aspirin. It was unclear whether she had syncope or she just tripped and fell in her bathroom. Throughout her stay she had no arrhythmias. She remained in left bundle branch block. She was completely asymptomatic. Very pleasant elderly female. She had a healing ulcer or loss of skin on her left lateral ankle. She is already going home health for wound care and that was resumed at discharge. INR was thought to be elevated on admission. However that was labs from previous stay. Current INR is 1.0. Patient is stable for discharge. Son is making plans for possible placement in the near future. She has only Medicare and no real other finances. She will have to sell her home and spend down in order to qualify for Medicaid. Social work worked closely with the son to help him start the process of applying for Medicaid if possible. At discharge she is a delightful, alert elderly frail female. Forgetful. But knows why she is here. Temperature is 36.5. Heart rate is 57. Blood pressure 128/69. Respirations 15. 97% on room air. She is 5 foot 3 inches tall and weighs 46 kg. Lungs are clear, regular rate and rhythm. Abdomen is soft, nontender. No organomegaly. No tenderness. Extremities have no edema. She has loss of muscle mass with bilateral temporal wasting. Her left distal lower extremity is covered in dressing. She is able to sit up on her own, feed herself, stand and ambulate to the bathroom. Greater than 30 minutes was spent coordinating discharge. - ALLERGIES Allergies/Adverse Reactions: Allergies Allergy/AdvReac Type Severity Reaction Status Date / Time diflunisal [From Dolobid] Allergy Hives Verified 05/12/22 04:40 etodolac [From Lodine] Allergy Hives Verified 05/12/22 04:40 iodine Allergy Anaphylaxis Verified 05/12/22 05:18 lidocaine Allergy Hives Verified 05/12/22 04:40 - MEDICATIONS Home Medications: Ambulatory Orders Medication Instructions Recorded Confirmed Furosemide [Lasix] 20 mg PO DAILY 05/12/22 05/12/22 Aspirin EC [Ecotrin] 81 mg PO DAILY #30 tablet 05/14/22 Atorvastatin [Lipitor] 20 mg PO DAILY #30 tablet 05/14/22 Cholecalciferol [Vitamin D3] 50 mcg PO DAILY tablet 05/14/22 Zinc Oxide 20% Oint [Zinc Oxide] 1 applic TOP PRN PRN 05/14/22 - LABS Result Diagrams: 05/13/22 13:03 05/13/22 13:03"
== END 2022-05-14 12:50 | disposition home health service (06) ==
LOC: EDUNIT# → ED 04:34 → MS2 11:13
PROVIDERS: ADMIT Specialist; ATTEND Specialist
DX: I21.4 Non-ST elevation (NSTEMI) myocardial infarction (principal); G30.9 Alzheimer's disease, unspecified; F02.80 Dementia in other diseases classified elsewhere, unspecified severity, without behavioral disturbance, psychotic disturbance, mood disturbance, and anxiety; R79.1 Abnormal coagulation profile; L97.329 Non-pressure chronic ulcer of left ankle with unspecified severity; E43 Unspecified severe protein-calorie malnutrition; Z68.1 Body mass index [BMI] 19.9 or less, adult; S09.90XA Unspecified injury of head, initial encounter; W19.XXXA Unspecified fall, initial encounter; Y92.002 Bathroom of unspecified non-institutional (private) residence as the place of occurrence of the external cause; R55 Syncope and collapse; Z20.822 Contact with and (suspected) exposure to COVID-19; I44.7 Left bundle-branch block, unspecified; Z66 Do not resuscitate; Z86.718 Personal history of other venous thrombosis and embolism; M06.9 Rheumatoid arthritis, unspecified; Z85.3 Personal history of malignant neoplasm of breast; R53.1 Weakness; D64.9 Anemia, unspecified; R58 Hemorrhage, not elsewhere classified; M62.50 Muscle wasting and atrophy, not elsewhere classified, unspecified site
CPT/HCPCS: 36415; 70450; 71046; 72125; 80048; 80053; 81001; 83605; 83690; 83735; 83880; 84484; 85014; 85018; 85025; 85610; 87086; 87633; 93005; 93306; 96361; 96372; 96374; 99283; 99285; A9270; G0378; J1650; 81003

== ENCOUNTER 2022-10-19 13:55 | Outpatient (CLI) | payer MEDICARE ==
--- NOTE | 2022-10-26 12:23 | Mammography Report ---
BILATERAL DIGITAL SCREENING MAMMOGRAM 3D/2D WITH EXAGGERATED CC: 10/19/2022 CLINICAL: Routine screening. Personal history of left breast cancer. Comparison is made to exams dated: 09/21/2021 mammogram, 07/17/2020 mammogram, 06/04/2019 mammogram, an d 05/11/2018 mammogram - [facility]. There are scattered areas of fibroglandular density in both breasts (category b / 25%-50% glandular t issue). There is a benign calcification in the right breast. There also are benign post operative findings i n the left breast. No significant masses, calcifications, or other findings are seen in either breast. There has been no significant interval change. IMPRESSION: BENIGN There is no mammographic evidence of malignancy. A 1 year screening mammogram is recommended. This exam was interpreted at Station ID: [id number]. NOTE: For mammograms, a report in lay terms will be sent to the patient. Approximately 15% of breast malignancies will not be visualized mammographically. In the management of a palpable breast mass, a negative mammogram must not discourage biopsy of a clinically suspicious lesion. Electronically Signed By: Umer Poole M.D. [facility] [place]:10/25/2022 13:52:53 ACR BI-RADS Category 2: Benign Finding(s) 3342F PARENCHYMAL PATTERN: (A) - The breast(s) demonstrate(s) scattered fibroglandular densities. BI-RADS CATEGORY: (2) - 2 RECOMMENDATION: (ANNUAL) - Recommend routine annual screening mammography. [id number] 1 year screening LATERALITY: (B)
== END 2022-10-19 13:56 | disposition home or self-care (01) ==
LOC: DI.S 13:55
DX: Z12.31 Encounter for screening mammogram for malignant neoplasm of breast (principal); Z85.3 Personal history of malignant neoplasm of breast

== ENCOUNTER 2022-11-12 08:00 | Outpatient (CLI) | payer MEDICARE ==
[2022-11-12 09:38] LABS: BASOPHILS # (AUTO) 0.1 10^3/uL (0.0-0.1); BASOPHILS % (AUTO) 0.8 %; EOSINOPHILS # (AUTO) 0.1 10^3/uL (0.0-0.7); EOSINOPHILS % (AUTO) 1.6 %; HCT - HEMATOCRIT 40.1 % (37.0-47.0); HGB - HEMOGLOBIN 13.2 g/dL (12.0-16.0); LYMPHOCYTES # (AUTO) 0.8 10^3/uL (1.5-3.5); LYMPHOCYTES % (AUTO) 12.6 %; MEAN CORPUSCULAR HEMOGLOBIN 31.3 pg (27.0-31.0); MEAN CORPUSCULAR HGB CONC 32.9 g/dL (32.0-36.0); MEAN PLATELET VOLUME 9.9 fL (7.9-10.8); MONOCYTES # (AUTO) 0.4 10^3/uL (0.0-1.0); MONOCYTES % (AUTO) 6.8 %; NEUTROPHILS # (AUTO) 4.9 10^3/uL (1.5-6.6); NEUTROPHILS % (AUTO) 77.9 %; PLT - PLATELET COUNT 242 10^3/uL (130-450); RED BLOOD COUNT 4.22 10^6/uL (4.20-5.40); RED CELL DISTRIBUTION WIDTH 13.5 % (12.0-15.0); WHITE BLOOD COUNT 6.3 x10^3/uL (4.8-10.8)
[2022-11-12 09:50] LABS: ALBUMIN 3.9 g/dL (3.2-5.5); ALBUMIN/GLOBULIN RATIO 1.9 (1.0-2.2); BILIRUBIN,TOTAL 0.7 mg/dL (0.2-1.0); CALCIUM 9.2 mg/dL (8.5-10.3); POTASSIUM 5.1 mmol/L (3.5-5.0)
[2022-11-12 10:08] LABS: THYROID STIMULATING HORMONE 2.29 uIU/mL (0.34-5.60)
== END 2022-11-12 23:59 | disposition home or self-care (01) ==
LOC: LAB 08:00
PROVIDERS: ATTEND Internal Medicine
DX: I10 Essential (primary) hypertension (principal)
CPT/HCPCS: 36415; 80053; 84443; 85025

== ENCOUNTER 2023-03-04 08:46 | Outpatient (CLI) | payer MEDICARE ==
[2023-03-04 09:12] LABS: ALBUMIN 4.1 g/dL (3.2-5.5); CALCIUM 8.9 mg/dL (8.5-10.3); CREATININE 1.1 mg/dL (0.4-1.0); PHOSPHORUS 4.5 mg/dL (2.5-4.6); POTASSIUM 4.6 mmol/L (3.5-5.0)
== END 2023-03-04 08:47 | disposition home or self-care (01) ==
LOC: LAB 08:46
PROVIDERS: ATTEND Family Medicine
DX: N18.2 Chronic kidney disease, stage 2 (mild) (principal)
CPT/HCPCS: 36415; 80069; 82306; 83970

== ENCOUNTER 2023-10-07 09:56 | Outpatient (CLI) | payer MEDICARE ==
[2023-10-07 10:10] LABS: BASOPHILS % (AUTO) 0.6 %; EOSINOPHILS # (AUTO) 0.1 10^3/uL (0.0-0.7); HCT - HEMATOCRIT 42.4 % (37.0-47.0); HGB - HEMOGLOBIN 13.6 g/dL (12.0-16.0); LYMPHOCYTES # (AUTO) 1.1 10^3/uL (1.5-3.5); LYMPHOCYTES % (AUTO) 15.9 %; MEAN CORPUSCULAR HEMOGLOBIN 31.9 pg (27.0-31.0); MEAN CORPUSCULAR HGB CONC 32.1 g/dL (32.0-36.0); MEAN CORPUSCULAR VOLUME 99.3 fL (81.0-99.0); MEAN PLATELET VOLUME 9.9 fL (7.9-10.8); MONOCYTES # (AUTO) 0.5 10^3/uL (0.0-1.0); MONOCYTES % (AUTO) 7.7 %; NEUTROPHILS # (AUTO) 4.9 10^3/uL (1.5-6.6); NEUTROPHILS % (AUTO) 73.5 %; PLT - PLATELET COUNT 227 10^3/uL (130-450); RED BLOOD COUNT 4.27 10^6/uL (4.20-5.40); RED CELL DISTRIBUTION WIDTH 12.7 % (12.0-15.0); WHITE BLOOD COUNT 6.6 x10^3/uL (4.8-10.8)
[2023-10-07 10:23] LABS: ALBUMIN 4.1 g/dL (3.2-5.5); ALBUMIN/GLOBULIN RATIO 1.9 (1.0-2.2); BILIRUBIN,TOTAL 0.3 mg/dL (0.2-1.0); CALCIUM 9.5 mg/dL (8.5-10.3); CREATININE 1.1 mg/dL (0.6-1.3); POTASSIUM 4.6 mmol/L (3.5-4.5); TOTAL PROTEIN 6.3 g/dL (6.4-8.9)
== END 2023-10-07 09:57 | disposition home or self-care (01) ==
LOC: LAB 09:56
PROVIDERS: ATTEND Family Medicine
DX: M06.9 Rheumatoid arthritis, unspecified (principal)
CPT/HCPCS: 36415; 80053; 85025

== ENCOUNTER 2024-05-03 09:36 | Outpatient (CLI) | payer MEDICARE ==
[2024-05-03 09:49] LABS: BASOPHILS % (AUTO) 0.3 %; EOSINOPHILS # (AUTO) 0.1 10^3/uL (0.0-0.7); EOSINOPHILS % (AUTO) 1.7 %; HCT - HEMATOCRIT 42.7 % (37.0-47.0); LYMPHOCYTES # (AUTO) 1.2 10^3/uL (1.5-3.5); LYMPHOCYTES % (AUTO) 20.2 %; MEAN CORPUSCULAR HEMOGLOBIN 31.7 pg (27.0-31.0); MEAN CORPUSCULAR HGB CONC 32.8 g/dL (32.0-36.0); MEAN CORPUSCULAR VOLUME 96.6 fL (81.0-99.0); MEAN PLATELET VOLUME 9.9 fL (7.9-10.8); MONOCYTES # (AUTO) 0.4 10^3/uL (0.0-1.0); MONOCYTES % (AUTO) 6.7 %; NEUTROPHILS # (AUTO) 4.1 10^3/uL (1.5-6.6); NEUTROPHILS % (AUTO) 70.9 %; PLT - PLATELET COUNT 200 10^3/uL (130-450); RED BLOOD COUNT 4.42 10^6/uL (4.20-5.40); RED CELL DISTRIBUTION WIDTH 13.8 % (12.0-15.0); WHITE BLOOD COUNT 5.8 x10^3/uL (4.8-10.8)
[2024-05-03 10:01] LABS: ALBUMIN 4.1 g/dL (3.2-5.5); ALBUMIN/GLOBULIN RATIO 1.9 (1.0-2.2); ALKALINE PHOSPHATASE 63 IU/L (42-121); ALT ALANINE AMINOTRANSFERASE 16 IU/L (10-60); AST ASPARTATE AMINOTRANSFERASE 20 IU/L (10-42); BILIRUBIN,TOTAL 0.5 mg/dL (0.2-1.0); BUN - BLOOD UREA NITROGEN 33 mg/dL (6-20); CALCIUM 9.2 mg/dL (8.5-10.3); CARBON DIOXIDE - CO2 32 mmol/L (21-32); CHLORIDE 103 mmol/L (101-111); CREATININE 1.1 mg/dL (0.6-1.3); CRP - C-REACTIVE PROTEIN < 0.5 mg/dL (<0.5); GFR - MDRD 47 (>89); GLUCOSE 109 mg/dL (74-104); POTASSIUM 4.6 mmol/L (3.5-4.5); SODIUM 138 mmol/L (135-145); TOTAL PROTEIN 6.3 g/dL (6.4-8.9)
== END 2024-05-03 09:37 | disposition home or self-care (01) ==
LOC: LAB 09:36
PROVIDERS: ATTEND Internal Medicine
DX: M05.9 Rheumatoid arthritis with rheumatoid factor, unspecified (principal)
CPT/HCPCS: 36415; 80053; 85025; 86140